=== PATIENT | female | born 1985 | race Caucasian/White ===

== ENCOUNTER 2019-01-09 18:01 | Emergency (ER) | payer MEDICAID ==
[~2019-01-09] VITALS: Ht 165.1 cm; Wt 73.9 kg
[~2019-01-09 18:01] MED LIST: PREN-385 PO
[2019-01-09 18:12] VITALS: BP 109/65
--- NOTE | 2019-01-09 18:17 | NUR ---
PT PROVIDED URINE, NOT IN DISTRESS, AMB TO LOBBY ALONE.
--- NOTE | 2019-01-09 18:57 | NUR ---
PT. AMBULATED TO ER BED 1
--- NOTE | 2019-01-09 19:08 | NUR ---
DR RAMÍREZ AT BEDSIDE.
--- NOTE | 2019-01-09 19:10 | NUR ---
BIB BOYFIREND C/O SPONTANEOUS . STATES SHE HAS HAD SPOTTING FOR THE LAST 3 WEEKS BUT STARTING PASSING LARGER CLOTS TODAY. STATES LOWER ABD CRAMPING 7/10 PAIN.
[2019-01-09] MEDS ORDERED: KETOROLAC 30 MG/ML VIAL IM ONE (19:15)
[2019-01-09 19:47] LABS: BASOPHILS % (AUTO) 0.3 % (0.0-2.0); EOSINOPHILS # (AUTO) 0.1 K/uL (0-0.4); EOSINOPHILS % (AUTO) 0.9 % (0.0-4.0); HEMATOCRIT 38.2 % (36-48); HEMOGLOBIN 12.8 g/dL (12.0-16.0); LYMPHOCYTES # (AUTO) 2.3 K/uL (2.5-16.5); LYMPHOCYTES % (AUTO) 32.1 % (20.5-51.1); MEAN CORPUSCULAR HEMOGLOBIN 30 pg (27-31); MEAN CORPUSCULAR HGB CONC 34 g/dL (33-37); MEAN CORPUSCULAR VOLUME 88.7 fL (80-94); MONOCYTES # (AUTO) 0.6 K/uL (0.8-1.0); MONOCYTES % (AUTO) 8.5 % (1.7-9.3); NEUTROPHILS # (AUTO) 4.2 K/uL (1.8-7.7); NEUTROPHILS % (AUTO) 58.2 % (42.2-75.2); PLATELET COUNT (AUTO) 214 K/uL (140-450); RED BLOOD CELL COUNT(AUTO) 4.31 MIL/uL (4.20-5.40); RED CELL DISTRIBUTION WIDTH 13.4 % (11.6-13.7); WHITE BLOOD COUNT (AUTO) 7.2 K/uL (4.8-10.8)
--- NOTE | 2019-01-09 20:08 | NUR ---
US AT BEDSIDE.
[2019-01-09 20:43] LABS: APPEARANCE,URINE SL CLOUDY (CLEAR); BILIRUBIN,URINE NEGATIVE (NEGATIVE); BLOOD, URINE 3+ (NEGATIVE); COLOR,URINE RED (YELLOW); LEUKOCYTE ESTERASE ,URINE TRACE (NEGATIVE); NITRITE, URINE NEGATIVE (NEGATIVE); PH,URINE 6.5 (5.0-9.0); UGLUCOSE NEGATIVE (NEGATIVE)
[2019-01-09 20:45] LABS: RBC,URINE TOO NUMEROUS TO COUN /HPF (0-5); WBC,URINE 0-5 /HPF (0-5)
--- NOTE | 2019-01-09 21:45 | NUR ---
no new needs stated at this time.
--- NOTE | 2019-01-09 22:12 | NUR ---
Patient discharged with v/s stable. Written and verbal after care instructions given and explained. Patient alert, oriented and verbalized understanding of instructions. Ambulatory with steady gait. All questions addressed prior to discharge. ID band removed. Patient advised to follow up with PMD. Rx of NAPROSYN, MACROBID, ACETAMINOPHEN given. Patient educated on indication of medication including possible reaction and side effects. Opportunity to ask questions provided and answered.
[2019-01-09 22:15] VITALS: BP 112/78
== END 2019-01-09 22:12 | disposition home or self-care (01) ==
LOC: MED 18:01
DX: O03.9 Complete or unspecified spontaneous abortion without complication (principal); Z79.899 Other long term (current) drug therapy
CPT/HCPCS: 36415; 76817; 81001; 81025; 84702; 85025; 86900; 86901; 87086; 96372; 99284; J1885; Q0092

== ENCOUNTER 2019-10-23 12:45 | Emergency (ER) | payer MEDICAID ==
[~2019-10-23] VITALS: Ht 165.1 cm; Wt 80.7 kg
[2019-10-23 12:51] VITALS: BP 111/77
--- NOTE | 2019-10-23 13:03 | NUR ---
EKG DONE UPON TRIAGE AND SHOWED TO DR. OROZCO. ASSISTED PT TO WAIT IN THE LOBBY DUE TO UNAVAILABLE BED AT THIS TIME.
--- NOTE | 2019-10-23 13:18 | NUR ---
PATIENT AMBULATED WITH STEADY GAIT TO BED 6.
--- NOTE | 2019-10-23 13:24 | NUR ---
PT C/O CONSTANT SHARP STERNAL CP RADIATING TO RIGHT-SIDED NECK, UPPER BACK, DIZZY, RIGHT-SIDE PISANO. PT DENIES VISION CHANGES, N/V. TOOK TYLENOL AND IBUPROFEN W/O RELIEF. PAIN 04/16. VS STABLE. PT DENIES DRUG, ALCOHOL, OR VAPE USE. PT ALERT AND AWAKE. AMBULATORY WITH STEADY GAIT TO BED. PT REPORTS PAIN STARTED SHE WAS GETTING READY TO TAKE A SHOWER. EKG SHOWS SR. PMH: DENIES MEDS: DENIES
[2019-10-23] MEDS ORDERED: MORPHINE SULFATE 4 MG/ML SYR IVP ONE (13:30)
--- NOTE | 2019-10-23 14:13 | NUR ---
PT STATED PAIN RELIEVED AFTER MORPHINE GIVEN.
[2019-10-23 14:15] LABS: BASOPHILS % (AUTO) 0.4 % (0.0-2.0); EOSINOPHILS # (AUTO) 0.1 K/uL (0-0.4); EOSINOPHILS % (AUTO) 0.8 % (0.0-4.0); HEMATOCRIT 45.5 % (36-48); LYMPHOCYTES # (AUTO) 2.4 K/uL (2.5-16.5); LYMPHOCYTES % (AUTO) 33.9 % (20.5-51.1); MEAN CORPUSCULAR HEMOGLOBIN 30 pg (27-31); MEAN CORPUSCULAR HGB CONC 33 g/dL (33-37); MEAN CORPUSCULAR VOLUME 91.6 fL (80-94); MONOCYTES # (AUTO) 0.6 K/uL (0.8-1.0); MONOCYTES % (AUTO) 7.8 % (1.7-9.3); NEUTROPHILS # (AUTO) 4.1 K/uL (1.8-7.7); NEUTROPHILS % (AUTO) 57.1 % (42.2-75.2); PLATELET COUNT (AUTO) 277 K/uL (140-450); RED BLOOD CELL COUNT(AUTO) 4.97 MIL/uL (4.20-5.40); RED CELL DISTRIBUTION WIDTH 13.4 % (11.6-13.7); WHITE BLOOD COUNT (AUTO) 7.1 K/uL (4.8-10.8)
[2019-10-23 14:37] LABS: PROTHROMBIN TIME 9.7 secs (10.8-13.4)
[2019-10-23 14:53] LABS: ANION GAP 16.4 (8-16); CARBON DIOXIDE 25.3 mmol/L (21-32); POTASSIUM 3.7 mmol/L (3.5-5.1)
[2019-10-23 14:54] LABS: ALBUMIN 4.5 g/dL (3.4-5.0); CREATININE 0.7 mg/dL (0.6-1.3); TOTAL BILIRUBIN 0.4 mg/dL (0.0-1.0)
--- NOTE | 2019-10-23 15:09 | NUR ---
PT STATED STILL FEEL A LITTLE BIT CHEST PAIN . REFUSED TO PUT ON HEART MONITOR.
[2019-10-23 15:30] VITALS: BP 116/68
--- NOTE | 2019-10-23 15:30 | NUR ---
Patient discharged with v/s stable. Written and verbal after care instructions given and explained. Patient alert, oriented and verbalized understanding of instructions. Ambulatory with steady gait. All questions addressed prior to discharge. ID band removed. Patient advised to follow up with PMD. Rx of MOTRIN 600 MG given. Patient educated on indication of medication including possible reaction and side effects. Opportunity to ask questions provided and answered.
== END 2019-10-23 15:30 | disposition home or self-care (01) ==
LOC: MED 12:45
DX: R07.9 Chest pain, unspecified (principal); R51 Headache; R42 Dizziness and giddiness; R20.2 Paresthesia of skin; Z79.899 Other long term (current) drug therapy
CPT/HCPCS: 36415; 71045; 80053; 81002; 81025; 83880; 84484; 85025; 85610; 85730; 93005; 96374; 99284; J2270; Q0092

== ENCOUNTER 2022-11-27 10:02 | Emergency (ER) | payer MEDICAID ==
[~2022-11-27] VITALS: Ht 165.1 cm; Wt 68.0 kg
[2022-11-27 10:15] VITALS: BP 122/75
[2022-11-27] MEDS ORDERED: KETOROLAC 30 MG/ML VIAL IM ONE (11:10)
[2022-11-27] MEDS ORDERED: ONDA-188 SL (11:13)
[2022-11-27] MEDS ORDERED: ACET-10509 PO (11:13)
[2022-11-27] MEDS ORDERED: ASPI-1198 PO (11:13)
--- NOTE | 2022-11-27 11:13 | NUR ---
37 Y/O FEMALE C/O MIGRAINE PISANO LEFT SIDED HAX1 WEEK. PER PT SHE RAN OUT OF HER MIGRAINE MEDS, STATES SLIGHT NAUSEA. DENIES ANY BLURRY VISION, CP, NASAL CONGESTION NKA PMH: MIGRAINE
[2022-11-27] MEDS ORDERED: ONDANSETRON 4 MG ODT PO ONE (11:15)
--- NOTE | 2022-11-27 11:48 | NUR ---
Patient discharged with v/s stable. Written and verbal after care instructions FOR MIGRAINE HEADACHE given and explained. Patient alert, oriented and verbalized understanding of instructions. Ambulatory with steady gait. All questions addressed prior to discharge. ID band removed. Patient advised to follow up with PMD. Rx of TYLENOL XTRA STRENGTH, EXCERDIN AND ZOFRAN ODT given. Opportunity to ask questions provided and answered.
== END 2022-11-27 11:48 | disposition home or self-care (01) ==
LOC: MED 10:02
DX: G43.909 Migraine, unspecified, not intractable, without status migrainosus (principal); Z79.899 Other long term (current) drug therapy
CPT/HCPCS: 81025; 96372; 99283; J1885; Q0162